=== PATIENT | female | born 1975 | race Caucasian/White ===

== ENCOUNTER 2018-04-02 11:20 | Emergency (ER) | payer SELFPAY ==
[2018-04-02] MEDS: ACETAMINOPHEN 325 MG TAB PO (13:17)
[2018-04-02 13:29] LABS: URINE BLOOD (Dip) POC 2+ (NEGATIVE); URINE GLUCOSE (Dip) POC Negative (NEGATIVE); URINE KETONES (Dip) POC 1+ (NEGATIVE); URINE LEUKOCYTE EST (Dip) POC Negative (NEGATIVE); URINE NITRITE (Dip) POC Negative (NEGATIVE); URINE TOTAL PROTEIN POC 2+ (NEGATIVE)
== END 2018-04-02 14:30 | disposition home or self-care (01) ==
LOC: FTE 11:20
DX: J02.0 Streptococcal pharyngitis (principal)
CPT/HCPCS: 81003; 81025; 87880; 99283